=== PATIENT | male | born 1935 | race Caucasian/White ===

== ENCOUNTER 2023-02-16 13:13 | Emergency (ER) | payer OTHER ==
[~2023-02-16] VITALS: Ht 162.6 cm; Wt 59.0 kg
[2023-02-16] MEDS ORDERED: LISI5 PO (14:39)
[2023-02-16] MEDS ORDERED: OMEP20ER PO (14:39)
[2023-02-16 16:41] VITALS: BP 132/70
== END 2023-02-16 17:30 | disposition home or self-care (01) ==
LOC: ER 13:13
DX: S61.213A Laceration without foreign body of left middle finger without damage to nail, initial encounter (principal); S70.12XA Contusion of left thigh, initial encounter; V48.9XXA Unspecified car occupant injured in noncollision transport accident in traffic accident, initial encounter; Z88.0 Allergy status to penicillin; Z88.8 Allergy status to other drugs, medicaments and biological substances; I10 Essential (primary) hypertension; K21.9 Gastro-esophageal reflux disease without esophagitis
CPT/HCPCS: 12002; 70450; 71045; 72125; 73130; 99285-25; A9270